=== PATIENT | female | born 1995 | race Caucasian/White ===

== ENCOUNTER 2018-01-07 21:48 | Emergency (ER) | payer SELFPAY, OTHER ==
[2018-01-08 01:35] LABS: CANNABINOIDS Negative (NEGATIVE)
[2018-01-08 01:42] LABS: BARBITURATES Negative (NEGATIVE); BENZODIAZEPINES Negative (NEGATIVE); COCAINE Negative (NEGATIVE); OPIATES Negative (NEGATIVE)
[2018-01-08 02:03] LABS: AMPHETAMINE/METHAMPHETAMINE Negative (NEGATIVE)
== END 2018-01-08 01:04 | disposition home or self-care (01) ==
LOC: FTE 21:48
DX: F10.920 Alcohol use, unspecified with intoxication, uncomplicated (principal)
CPT/HCPCS: 80306; 80307; 99283